=== PATIENT | male | born 1995 | race Caucasian/White ===

== ENCOUNTER 2019-11-16 07:13 | Emergency (ER) | payer SELFPAY ==
[~2019-11-16] VITALS: Ht 182.8 cm; Wt 63.5 kg
[~2019-11-16 07:13] MED LIST: AMOXICILLIN500 MG PO; AUGMENTIN 875875 MG PO; CIPRO500 MG PO; NAPROSYN500 MG PO; PERCOCET 325 MG1 TA2 PO; PHENERGAN W/DM480 ML PO; ZOFRAN4 MG PO
[2019-11-16 08:03] LABS: HEMATOCRIT 41.5 % (42.0-52.0); MEAN CELL VOLUME 95.4 fl (80.0-94.0); MEAN CORPUSCULAR HGB 31.7 pg (27.0-31.0); MEAN CORPUSCULAR HGB CONC 33.3 g/dl (33.0-37.0); MEAN PLATELET VOLUME 11.1 fl (9.6-12.3); PLATELET COUNT AUTOMATED 168 10*3/uL (130-400); RED BLOOD COUNT 4.35 10*6/uL (4.50-5.90); RED CELL DISTRI WIDTH 12.8 % (0-14.5); WHITE BLOOD COUNT 15.7 10*3/uL (4.8-10.8)
[2019-11-16 08:10] LABS: ALBUMIN 3.9 gm/dl (3.1-4.5); ALKALINE PHOSPHATASE 72 U/L (45-117); BUN 37 mg/dl (7-24); CHLORIDE 108 mmol/L (98-107); CREATININE 0.93 mg/dL (0.70-1.30); POTASSIUM 4.8 mmol/L (3.5-5.1); SGOT/AST 14 IU/L (3-35); SGPT/ALT 18 U/L (12-78); SODIUM 138 mmol/L (136-145); TOTAL PROTEIN 7.3 gm/dL (6.4-8.2)
[2019-11-16 08:13] LABS: PLATELET SUFFICIENCY NORMAL (NORMAL); TOTAL CELLS COUNTED 100 #CELLS
[2019-11-16] MEDS ORDERED: CARAFATE1 G1 PO (08:38)
[2019-11-16] MEDS ORDERED: TYLENOL325 M1 PO (08:38)
[2019-11-16] MEDS ORDERED: AMOXICILLIN500 M3 PO (08:38)
[2019-11-16] MEDS ORDERED: PRILOSEC20 M1 PO (08:38)
[2019-11-16 08:39] LABS: BILIRUBIN NEGATIVE (NEGATIVE); CLARITY CLEAR (CLEAR); COLOR YELLOW (YELLOW); GLUCOSE NEGATIVE (NEGATIVE)
[2019-11-16 08:40] LABS: BLOOD NEGATIVE (NEGATIVE); KETONE 2+ (NEGATIVE); LEUKO ESTERASE NEGATIVE (NEGATIVE); NITRITE NEGATIVE (NEGATIVE); SPECIFIC GRAVITY 1.015 (1.005-1.030); UROBILINOGEN 0.2 E.U./dl (0.2-1.0)
[2019-11-16 08:41] LABS: WBC 0-2 wbc/hpf (0-5)
== END 2019-11-16 08:44 | disposition home or self-care (01) ==
LOC: ED 07:13
PROVIDERS: Emergency Medicine
DX: K29.70 Gastritis, unspecified, without bleeding (principal); K02.9 Dental caries, unspecified; Z79.899 Other long term (current) drug therapy

== ENCOUNTER 2020-10-18 07:02 | Emergency (ER) | payer BC ==
[~2020-10-18] VITALS: Ht 182.8 cm; Wt 63.5 kg
[~2020-10-18 07:02] MED LIST changes: +AMOXICILLIN500 M3 PO; +CARAFATE1 G1 PO; +PRILOSEC20 M1 PO; +TYLENOL325 M1 PO
[2020-10-18] MEDS ORDERED: Cipro Hc 0.2%-110 ML OT (08:50)
== END 2020-10-18 08:59 | disposition home or self-care (01) ==
LOC: ED 07:02
DX: S05.01XA Injury of conjunctiva and corneal abrasion without foreign body, right eye, initial encounter (principal); Z79.899 Other long term (current) drug therapy; Z79.2 Long term (current) use of antibiotics; X58.XXXA Exposure to other specified factors, initial encounter; Y93.89 Activity, other specified; Y92.89 Other specified places as the place of occurrence of the external cause; Y99.8 Other external cause status

== ENCOUNTER → 2021-01-29 | Outpatient (CLI) | payer BC ==
[~2021-01-29] MED LIST changes: +Cipro Hc 0.2%-110 ML OT
== END | disposition home or self-care (01) ==
LOC: COVID19 15:29
PROVIDERS: ATTEND Internal Medicine
DX: U07.1 COVID-19 (principal)

== ENCOUNTER 2021-10-23 12:37 | Emergency (ER) | payer OTHER ==
[~2021-10-23] VITALS: Wt 65.8 kg
[2021-10-23] MEDS ORDERED: METHOCARBAMOL500 M1 PO (16:12)
[2021-10-23] MEDS ORDERED: IBUPROFEN600 MG PO (16:12)
== END 2021-10-23 16:18 | disposition home or self-care (01) ==
LOC: ED 12:37
DX: S13.9XXA Sprain of joints and ligaments of unspecified parts of neck, initial encounter (principal); S05.11XA Contusion of eyeball and orbital tissues, right eye, initial encounter; Z79.899 Other long term (current) drug therapy; Z79.2 Long term (current) use of antibiotics; V48.5XXA Car driver injured in noncollision transport accident in traffic accident, initial encounter; Y93.I9 Activity, other involving external motion; Y92.488 Other paved roadways as the place of occurrence of the external cause; Y99.8 Other external cause status